=== PATIENT | female | born 2005 | race Caucasian/White ===

== ENCOUNTER 2023-07-10 12:30 | Emergency (ER) | payer SELFPAY ==
[~2023-07-10] VITALS: Ht 165.1 cm; Wt 59.0 kg
[2023-07-10 12:35] VITALS: BP 148/70; PULSE 133; RESP 22; O2SAT 99
[2023-07-10] MEDS: MIDAZOLAM 5 MG/5 ML VIAL IM ONE (12:43)
[2023-07-10 13:40] LABS: ANION GAP 14.9 (8-16); CALCIUM 9.5 mg/dL (8.5-10.1); CARBON DIOXIDE 24.8 mmol/L (21-32); CREATININE 0.7 mg/dL (0.6-1.3); POTASSIUM 3.7 mmol/L (3.5-5.1)
[2023-07-10 13:56] LABS: ALANINE AMINOTRANSFERASE 13 U/L (12-78); ALBUMIN 4.1 g/dL (3.4-5.0); ALKALINE PHOSPHATASE 66 U/L (50-136); ASPARTATE AMINOTRANSFERASE 13 U/L (15-37); BILIRUBIN,DIRECT 0.1 mg/dL (0.0-0.3); TOTAL BILIRUBIN 0.3 mg/dL (0.0-1.0); TOTAL PROTEIN, SERUM 7.3 g/dL (6.4-8.2)
[2023-07-10 13:58] LABS: ACETAMINOPHEN < 0.5 ug/ml (10-30); SALICYLATE < 2.8 mg/dL (2.8-20.0)
[2023-07-10 13:59] LABS: ALCOHOL, BLOOD < 3 mg/dL (<10)
[2023-07-10] MEDS: ONDANSETRON 4 MG/2 ML VIAL IVP ONE (14:41)
[2023-07-10] MEDS: NACL 0.9% 1,000 ML IV ONE (15:05)
[2023-07-10 15:21] LABS: BASOPHILS % (AUTO) 0.3 % (0.0-2.0); EOSINOPHILS # (AUTO) 0.1 K/uL (0-0.4); EOSINOPHILS % (AUTO) 1.2 % (0.0-4.0); HEMATOCRIT 39.5 % (36-48); HEMOGLOBIN 13.3 g/dL (12.0-16.0); LYMPHOCYTES # (AUTO) 1.3 K/uL (2.5-16.5); LYMPHOCYTES % (AUTO) 29.6 % (20.5-51.1); MEAN CORPUSCULAR HEMOGLOBIN 30 pg (27-31); MEAN CORPUSCULAR HGB CONC 34 g/dL (33-37); MEAN CORPUSCULAR VOLUME 87.9 fL (80-94); MONOCYTES # (AUTO) 0.2 K/uL (0.8-1.0); MONOCYTES % (AUTO) 5.6 % (1.7-9.3); NEUTROPHILS # (AUTO) 2.7 K/uL (1.8-7.7); NEUTROPHILS % (AUTO) 63.3 % (42.2-75.2); PLATELET COUNT (AUTO) 199 K/uL (140-450); RED BLOOD CELL COUNT(AUTO) 4.49 MIL/uL (4.20-5.40); RED CELL DISTRIBUTION WIDTH 13.7 % (11.6-13.7); WHITE BLOOD COUNT (AUTO) 4.2 K/uL (4.5-11.0)
[2023-07-10] MEDS: METOCLOPRAMIDE 10 MG/2 ML INJ VIAL IVP ONE (16:22)
[2023-07-10] MEDS: KETOROLAC 30 MG/ML VIAL IVP ONE (16:42)
[2023-07-10 18:20] VITALS: BP 97/58; PULSE 87; RESP 14; TEMP 97.4; O2SAT 99
== END 2023-07-10 18:20 | disposition home or self-care (01) ==
LOC: MED 12:30
DX: F23 Brief psychotic disorder (principal); R45.1 Restlessness and agitation; Z79.899 Other long term (current) drug therapy
CPT/HCPCS: 36415; 80048; 80076; 84484; 84703; 85025; 93005; 96361; 96372; 96374; 96375; 99291; G0480; G0482; J1885; J2250; J2405; J2765; J7030